=== PATIENT | female | born 1960 | race Caucasian/White ===

== ENCOUNTER 2021-04-14 06:25 | Observation (INO) ==
--- NOTE | 2021-03-10 09:18 | PAT Medication Instructions ---
Medication Instructions Date of Service March 10, 2021 Home Medications hydrocodone 5 mg-acetaminophen 325 mg tablet 1 tab PO TID PRN lisinopril 5 mg tablet 5 mg PO QAM naproxen sodium 220 mg capsule (Aleve) 220 mg PO BID PRN fluticasone propionate 50 mcg/actuation nasal spray,suspension 2 spray INTRANASAL DAILY ASK your surgeon for instructions naproxen sodium 220 mg capsule (Aleve) 220 mg PO BID PRN DO NOT take the morning of surgery lisinopril 5 mg tablet 5 mg PO QAM Take morning of surgery With a small sip of water, OTHERWISE NOTHING TO EAT OR DRINK AFTER MIDNIGHT: hydrocodone 5 mg-acetaminophen 325 mg tablet 1 tab PO TID PRN (okay to take up to 4 hours prior to surgery if needed) fluticasone propionate 50 mcg/actuation nasal spray,suspension 2 spray INTRANASAL DAILY Take evening before surgery hydrocodone 5 mg-acetaminophen 325 mg tablet 1 tab PO TID PRN (if needed) Other Notes If you have any questions please call us at [phone] or [phone] or [phone] or [phone]
--- NOTE | 2021-03-13 09:52 | Anesthesiology Consultation ---
Date of Service March 13, 2021 Assessment & Plan (1) Encounter for pre-operative examination: - COVID screening: Per assessment on 03/13: Travel screen negative, no known COVID-19 positive contacts or current COVID-19 related symptoms. Patient had initial COVID vaccine 02/09 (pt scheduled for second vaccinate 03/21). Surgeon arranging preop COVID testing. Awaiting results. - Difficult intubation: Per pt, told difficult intubation with remote EDGERMAN procedure at [facility] in (records not available)- told "small airway" which took several intubation attempts resulting in chipped upper front teeth and almost requiring need for trach. But per patient, they were able to intubate without needing trach. Subsequent ex-lap done at [facility] 2000 (records also not available) in which patient states they did not mention issue with intubation this time but they did have to do a breathing pretreatment. She reports that she has not had more recent surgeries requiring intubation in the subsequent 20 years following those procedures. On exam, patient has small oral opening, Mallampati 4, 1.5 finger breaths (small chin), thick neck with significantly decreased cervical extension consistent with likely difficult intubation* Chart Review Chart Review: Acceptable Risk for Surgery and Patient seen in Pre Admission Testing Teaching & Discussion Pre-Anesthesia Teaching/Discussion Notes: Instructed NPO after midnight before surgery,except medications with 15 cc of water. Medication instructions provided according to the PAT guidelines. History Surgery Operation Date: 04/14/21 07:00 Proposed Procedures p Left Total Knee Arthroplasty - Jono Murdock MD Height/Weight Height: 5 ft 7.5 in Weight: 91.3 kg Allergies Allergy/AdvReac Type Severity Reaction Status Date / Time amoxicillin AdvReac Mild "Ill" Verified 03/13/21 09:52 feeling Medications Home Medications Medication Instructions Recorded Confirmed Last Taken hydrocodone 5 mg-acetaminophen 325 1 tab PO TID PRN 06/08/20 03/09/21 Unknown mg tablet lisinopril 5 mg tablet 5 mg PO QAM 06/08/20 03/09/21 Unknown naproxen sodium 220 mg capsule 220 mg PO BID PRN 06/08/20 03/09/21 Unknown (Aleve) fluticasone propionate 50 2 spray INTRANASAL DAILY 03/09/21 03/09/21 Unknown mcg/actuation nasal spray,suspension Past Medical History Medical History Hyperlipidemia Hypertension Left knee DJD Osteoarthritis Sleep apnea CPAP Exercise / Class Metabolic Activity II 4-5 Yardwork/Stairs/Walk up hill (one FS (no CP, no SOB)) Past Surgical History Surgical History Difficult intubation Per pt, told difficult intubation with remote EDGERMAN procedure at [facility] in (records not available)- told "small airway" which took several intubation attempts resulting in chipped upper front teeth and almost requiring need for trach. But per patient, they were able to intubate without needing trach. Subsequent ex-lap done at [facility] 2000 (records also not available) in which patient states they did not mention issue with intubation this time but they did have to do a breathing pretreatment. She reports that she has not had more recent surgeries requiring intubation in the subsequent 20 years following those procedures. History of colon resection R/t endometriosis Hx of colonoscopy Hx of exploratory laparotomy + USO Hx of hysterectomy Hx of tonsillectomy Hx of tubal ligation S/P epidural steroid injection Past Anesthesia History Difficult Airway and No Family Hx of Anesthesia Complications Difficult intubation: Per pt, told difficult intubation with remote EDGERMAN procedure at [facility] in (records not available)- told "small airway" which took several intubation attempts resulting in chipped upper front teeth and almost requiring need for trach. But per patient, they were able to intubate without needing trach. Subsequent ex-lap done at [facility] 2000 (records also not available) in which patient states they did not mention issue with intubation this time but they did have to do a breathing pretreatment. She reports that she has not had more recent surgeries requiring intubation in the subsequent 20 years following those procedures. History of PONV No Hx of PONV and No Hx of Motion Sickness Social History Smoking Status: Never smoker Do You Dip or Chew Tobacco: No Hx Alcohol Use: Yes Alcohol type: wine alcohol intake frequency: holidays/special occasions only Hx Substance Use: No substance use type: does not use Review of Systems Patient denies chest pain, shortness of breath, dyspnea on exertion, fever, chills, cough, wheezing, palpitations. Physical Exam Vital Signs VITALS BP 153/80 P 65 TEMP 98.4 SP02 97%RA RESP 18 PHYSICAL Significantly decreased cervical extension range of motion. Full TMJ range of motion. TMD 1.5 finger breaths (small chin) Mallampati Score 4 (small oral opening) Dentition: upper front chipped "repaired" Lungs: clear throughout to auscultation Cardiac: regular rate and rhythm, no murmurs noted Spine: normal Carotid arteries: negative bruit Extremities: no edema Thick neck Lab Results Anesthesia Preop Results Results Anesthesia Widget: WBC 5.20 K/uL (4.8-10.8) 03/13/21 Hgb 12.3 g/dL (12.0-16.0) 03/13/21 Hct 36.9 % (37-47) L 03/13/21 Plt 301 K/uL (130-400) 03/13/21 Na 139 mmol/L (136-145) 03/13/21 K 3.9 mmol/L (3.5-5.1) 03/13/21 Cl 107 mmol/L (98-107) 03/13/21 CO2 26 mmol/L (21-32) 03/13/21 BUN 15 mg/dl (7-18) 03/13/21 Creat 0.64 mg/dl (0.6-1.2) 03/13/21 Glucose Level 96 mg/dl (70-99) 03/13/21 PT 10.1 Seconds (9.0-12.0) 03/13/21 PTT 23.3 Seconds (21.0-31.0) 03/13/21 INR 1.0 (0.9-1.1) 03/13/21 Blood Type A Positive 03/13/21 Antibody Screen NEGATIVE 03/13/21 Testing Electrocardiogram Date: 03/13/21 NSR at 66bpm. Moderate voltage criteria for LVH, may be normal variant. unconfirmed report. Chest X-Ray Date: 03/13/21 FINDINGS: Lung volumes are normal. Lungs are clear. There is no pneumothorax or pleural effusion. Cardiac size is normal. Mediastinal contours are normal. There is no evidence for pulmonary edema. Incidental note is made of an azygos fissure. IMPRESSION: No acute cardiopulmonary findings.
--- NOTE | 2021-04-08 10:44 | History and Physical Report ---
CHIEF COMPLAINT: Bilateral knee pain and discomfort, left side greater than right. HISTORY OF PRESENT ILLNESS: The patient is a 60-year-old female whom I have been following for knee arthritis for quite some time. She has been through extensive conservative treatment over the years, most specifically medicines as well as injections. She had multiple aspirations and injections, whi ch have become less successful over time. The left knee bothers her more than right. Fairly global pain. The more she is up and on, the more it hurts and more it swells. The knee has become very sti ff and she would like to have this fixed. PAST MEDICAL HISTORY: 1. Hypertension. 2. Elevated cholesterol. 3. Sleep apnea with CPAP machine. 4. Obesity with BMI of 31.2. PAST SURGICAL HISTORY: Includes: 1. Tonsillectomy. 2. Tubal ligation. 3. Colon removal/uterus removal for endometriosis. ALLERGIES: AMOXICILLIN. REACTIONS UNKNOWN. CURRENT MEDICATIONS: Includes: 1. Lisinopril. 2. Naproxen. 3. Fluticasone nasal spray. 4. Hydrocodone/Tylenol. SOCIAL HISTORY: This is a 60-year-old female. She is . Occasional alcohol intake. FAMILY HISTORY: Noncontributory. REVIEW OF SYSTEMS: Negative for diabetes, neurologic problem, vascular problems or bleeding disorder s. No chest pain or shortness of breath. No history of DVT or PE. No known bleeding problems. PHYSICAL EXAMINATION: GENERAL: Shows a pleasant middle-aged female, who looks to be in pretty good health. HEENT: Benign. NECK: Supple. No lymphadenopathy. LUNGS: Clear to auscultation. HEART: Has regular rate and rhythm. ABDOMEN: Soft, nontender, nondistended. EXTREMITIES: Grossly neurovascularly intact except as follows. Examination of the left knee reveals the patient ambulates independently. She has got valgus alignme nt to her knee. She has got a moderate-sized knee effusion. Range of motion about 10 degrees short of full extension to 90 degrees of flexion and very stiff. No pain with hip motion. X-RAYS: X-rays of the left knee reviewed. It shows advanced left knee lateral compartment DJD and a dvanced patellofemoral disease. She has got complete loss of her lateral joint space. She has simil ar findings in the right knee. ASSESSMENT: A 60-year-old female with advanced bilateral knee degenerative joint disease, left side more symptomatic than right. She has failed conservative treatment, elected to proceed with left kne e replacement. PLAN: We will take her to the operating room and do a left total knee replacement. Risks and benefi ts of this procedure were explained to the patient include but not limited to DVT, PE, , infecti on, neurological injury, vascular injury, bleeding problem, pain, limited range of motion, stiffness, failure to relieve her symptoms, incomplete relief of symptoms, need for further surgery in the futu re, fracture, leg length inequality, nerve palsy, etc. The patient understands and desires to procee d. Informed consent was obtained. We did talk about holding her lisinopril the morning of surgery. She will bring her CPAP machine to the hospital. She is planning to be discharged to home using [facility]. I will see her back 2 weeks postop. Job ID: [id number]
[~2021-04-14 06:25] MED LIST: ACETAMINOPHEN 500 MG TAB PO SCH; BUPIVACAINE LIPOSOME/PF 266 MG, BUPIVACAINE/EPINEPHRINE 50 ML, SODIUM CHLORIDE 0.9% 30 ... INFIL SCH; FAMOTIDINE 20 MG TAB PO SCH; GABAPENTIN 600 MG DOSE PO SCH; LR 500ML BOLUS, THEN 15ML/HR IV SCH; LR 60ML/HR IV SCH; METOCLOPRAMIDE HCL 10 MG TABLET PO SCH; Scopolamine 1 MG TDSY TD SCH; TRANEXAMIC ACID 1,000 MG **IV Intra-op IV SCH; ceFAZolin 2000MG 2,000 MG/15 ML SYR IV SCH
--- NOTE | 2021-04-14 06:56 | History & Physical Bridge Note ---
Date of Service April 14, 2021 History & Physical Bridge Note I have examined the patient, reviewed the History & Physical and in the interval since the performance of the History & Physical I have noted the following changes of clinical significance: no changes noted
[2021-04-14] MEDS ORDERED: ROPIVACAINE 0.5% 5 MG/ML 30 ML VIAL ONE (07:17)
[2021-04-14] MEDS ORDERED: BUPIVACAINE 0.5 % 5 MG/1 ML PF 10ML VIAL ONE (07:18)
[2021-04-14] MEDS ORDERED: MIDAZOLAM HCL 1 MG/ML 2ML VIAL ONE ×2 (08:35→09:42)
[2021-04-14] MEDS ORDERED: fentaNYL citrate 100 MCG/2 ML VIAL ONE (08:35)
[2021-04-14] MEDS ORDERED: SODIUM CHLORIDE 0.9% PF 50 ML VIAL ONE (09:10)
[2021-04-14] MEDS ORDERED: BUPIVACAINE LIPOSOME 1.3% 266 MG/20 ML VIAL ONE (09:11)
[2021-04-14] MEDS ORDERED: EPINEPHrine INJ 1 MG/ML AMP ONE (09:11)
[2021-04-14] MEDS ORDERED: BUPIVACAINE 0.25% 30 ML VIAL ONE (09:12)
[2021-04-14] MEDS ORDERED: KETAMINE 50 MG/5 ML SYRINGE ONE (09:43)
[2021-04-14] MEDS ORDERED: ATROPINE SULFATE 0.1 MG/ML 10ML SYR IV PRN (10:06)
[2021-04-14] MEDS ORDERED: KETOROLAC 30 MG/ML VIAL IV PRN (10:06)
[2021-04-14] MEDS ORDERED: ONDANSETRON INJ 2 MG/ML 2 ML VIAL IV PRN ×2 (10:06→13:01)
[2021-04-14] MEDS ORDERED: HYDROmorphone INJ 1 MG/ML SYRINGE IV PRN (10:06)
[2021-04-14] MEDS ORDERED: ePHEDrine sulfate 50 MG/ML AMP IV PRN (10:06)
[2021-04-14] MEDS ORDERED: PROPOFOL IV EMULSION 10 MG/ML 20 ML VIAL IV ONE (11:15)
--- NOTE | 2021-04-14 11:36 | Operative Report ---
Post Operative Report Pre & Post Diagnosis Operation Date: 04/14/21 08:50 Pre-Op Diagnosis: Left Knee Osteoarthritis Post-Op Diagnosis: Left Knee Osteoarthritis I identified the patient and participated in the time-out.: Yes Procedure Operation Date: 04/14/21 08:50 Actual Procedures p Left Total Knee Replacement(Left) - Jono Murdock MD Surgeon Jono Murdock MD Caustic Preparer Geovanny Wright PA-C Estimated Blood Loss 50 Findings Consistent with Post-Op Diagnosis Operative findings were advanced left knee tricompartment DJD with grade 4 change changes in all 3 compartments of the knee with erosions and osteophytes and some diffuse osteopenia. Moderate-sized joint effusion. She had a very stiff knee preoperatively with about a 10 degree flexion contracture and about 95 degrees of flexion. Fluids 1800 cc Specimens Left knee sent for pathology. Anesthesia Type Spinal MAC Complications none Disposition Accompanied Patient To Recovery: No Indications Patient is a 60-year-old female has had a long history of left knee pain discomfort describes gotten worse over time. She developed recurrent effusions as well as what looked quite a bit of stiffness in her knee. X-rays show advanced lateral and patellofemoral compartment arthritis. She elected proceed with surgical treatment. She had a very stiff and inflamed knee. Description of Procedure Operative implants consist of: 1. Biomet Vanguard size 67.5 left posterior stabilized femoral component. 2. Biomet size 67 tibial tray. 3. 10 mm posterior stabilized polyethylene insert. 4. 31 x 8 all polypatella. The patient was taken to the operating room, identified, and placed on the operating table supine position but all contractors were properly padded. IV antibiotics were provided by anesthesia team. A spinal anesthetic and been implemented holding area along with an abductor canal block. Pereira catheter was placed in sterile fashion. A left thigh turn was then placed in the left lower extremities and prepped and draped in usual sterile fashion. The left leg was elevated exsanguinated with use of an Esmarch and turns placed at 300 mmHg. An anterior approach left knee was then performed through longitudinal incision centered over the patella. Sharp dissection carried through subcutaneous this down the extensor mechanism. A medial parapatellar arthrotomy was then performed. Subperiosteal dissection was carried out medially. The fat pad was resected from the patella tendon. Lateral patellofemoral ligament was released. Patella subluxated laterally and the knee was flexed. The osteophytes taken off distal femur. The ACL and PCL were then released and distal femur the tibia subluxated anteriorly. External tibial alignment jig was then placed in the interface the tibia and adjusted 12 mm medially. Proximal tibial cut was made remove about 3 to 4 mm of bone from the medial side. Tibia was sized to a size 67. We did downsize this in order to get appropriate rotation as she has had patellofemoral maltracking preoperatively. Attention drawn the femur. The distal femur during the sharp drill. The intramedullary canal was suction. A left 5 degree valgus cutting guide was placed. The distal femoral cutting block was pinned in place. Distal femoral cut was made to take an additional 3 mm of bone off distal femur. The knee was brought out into full extension. I did do a pie crusting of the IT band in order to equalize extension gap. The knee was flexed. The femur was then sized to a size 67.5. The AP cutting block was pinned parallel to the epicondylar axis which was 6 degrees of external rotation. The anterior cut, anterior chamfer, posterior cut, posterior chamfer cuts were made. The box cutting guide was placed in the just slight lateral and the box cut was made. The knee was flexed. The remnants of the medial and lateral menisci were excised. The osteophytes taken off the posterior aspect of femur. A trial femoral component was placed. Tibial tray was pinned in maximum external rotation and the drill and stem punch were used to create defect in proximal tibia for the tibial tray. Knee was then trialed the 10 mm insert fit most appropriately. I did leave this a little bit loose as her knee was very stiff preoperatively. Attention was then drawn to the patella. Patella was cleaned of all soft tissue. Patella thickness measured about 22 mm in thickness cut down to 14. Was sized to a size 31 patella. The lug holes were drilled for the 31 patella. The lateral osteophyte is moved. Patella button was placed. Knee was taken through range of motion patella tracked nicely with no thumbs test. Attention drawn to placing permanent components. Nupathe all trial components were removed. Bone plug was placed in the distal femur limit blood loss. Double batch Palacos G cement was mixed. BiomYappnguard size 67.5 left posterior stabilized femoral component, size 67 tibial tray, a 10 mm posterior stabilized polyethylene insert, and a 31 x 8 all polypatella were then cemented in place. Knee was brought out in full extension total cement hardened. Final cement checkup then performed. Pericapsular tissues were injected with total 100 cc of combination of 20 cc of Exparel, 30 cc normal saline, 50 cc of quarter percent Marcaine with epinephrine. Patient did receive 1 g tranexamic acid per the tourniquet was let down for turn time 63 minutes. Hemostasis assured use electrocautery. The wound was once again irrigated. The extensor mechanism closed with combination 1 PDS suture #1 Vicryl suture in [id number] fashion for the extensor mechanism checked found to be intact with a subcutaneous tissue then closed with 2 Dexon suture in a buried interrupted fashion skin was closed skin mitch. Leg was then cleaned dried a sterile dressing with Xeroform, 4 x 4's, sterile cast padding, Anson bandage were applied. Patient then transferred to the recovery room in stable condition. Patient tolerated procedure well and there were no complications. Geovanny Wright, my physician imaging assistant, was present for the entire procedure. His assistance was essential and required for appropriate patient positioning, prepping and draping, surgical exposure, performing the technical details of the operation, placement the implants, closure of the wound, and placement of the sterile bandage. I attest to the content of the Intraoperative Record and any orders documented therein. Any exceptions are noted below.
--- NOTE | 2021-04-14 11:47 | XRay Report ---
LEFT KNEE 2 VIEWS History: Left total knee arthroplasty. Degenerative arthritis. Postop. FINDINGS: The patient is status post a left total knee arthroplasty. The hardware is intact. No fract ure or dislocation. Skin mitch are in place. IMPRESSION: Left total knee arthroplasty. No evidence for hardware complication. ACT 112: Negative or not required by law. Electronically signed by: Hoang Payne M.D. 04/14/2021 11:46 AM
[2021-04-14] MEDS ORDERED: NALOXONE HCL 0.4 MG/1 ML VIAL/CARP IV PRN (13:01)
[2021-04-14] MEDS ORDERED: bisacodyL 10 MG SUPP PR PRN (13:01)
[2021-04-14] MEDS ORDERED: diphenhydrAMINE Capsule 25 MG CAP PO PRN (13:01)
[2021-04-14] MEDS ORDERED: MAGNESIUM HYDROXIDE SUSP 30 ML UDC PO PRN (13:01)
[2021-04-14] MEDS ORDERED: ALUMINUM/MAGNESIUM SUSP 30 ML UDC PO PRN (13:01)
[2021-04-14] MEDS ORDERED: METOCLOPRAMIDE HCL INJ 5 MG/ML 2 ML VIAL IV PRN (13:01)
--- NOTE | 2021-04-14 13:03 | Anesthesiology Progress Note ---
Date of Service April 14, 2021 Anesthesia Post Procedure Vital Signs Vital Signs: Temp Pulse Pulse Resp BP Pulse Ox 04/14/21 12:56 36.5 C 60 16 167/82 H 100 04/14/21 12:05 66 16 159/80 H 100 04/14/21 11:55 37 C 59 L 15 133/78 100 04/14/21 11:45 77 16 156/75 H 99 04/14/21 11:35 66 16 138/75 100 04/14/21 11:28 36.5 C 80 22 149/68 H 99 04/14/21 07:21 37.3 C 74 20 178/91 H 99 Transfer of Care Handoff Completed per policy Notes Mental Status: alert / awake / arousable Patient Amnestic to Procedure: Yes Nausea / Vomiting: adequately controlled Pain: adequately controlled Airway Patency, RR, SpO2: stable & adequate BP & HR: stable & adequate Hydration State: stable & adequate Anesthetic Complications: no major complications apparent
[2021-04-14] MEDS: SODIUM CHLORIDE 0.9% 1000ML 1,000 ML IV SCH ×2 (13:43→23:28)
[2021-04-14] MEDS: ACETAMINOPHEN 500 MG TAB PO SCH ×2 (13:45→21:03)
[2021-04-14] MEDS: KETOROLAC 30 MG/ML VIAL IV SCH ×2 (13:45→19:52)
[2021-04-14] MEDS: oxyCODONE HCL IR 5 MG TAB (IMMEDIATE RELEASE) PO PRN ×2 (14:38→20:00)
[2021-04-14] MEDS: Scopolamine CHECK PATCH PLACEMENT SCH ×2 (15:13→23:29)
[2021-04-14] MEDS: ASCORBIC ACID 500 MG TAB PO SCH (16:39)
[2021-04-14] MEDS: ceFAZolin 2000MG 2,000 MG/15 ML SYR IV SCH (16:40)
[2021-04-14] MEDS ORDERED: TRANEXAMIC ACID / 0.7% NACL 1,000 MG/100 ML BAG IV SCH (17:30)
[2021-04-14] MEDS: DOCUSATE SODIUM 100 MG CAP PO SCH (19:58)
[2021-04-14] MEDS: ASPIRIN 81 MG ECTAB PO SCH (20:00)
[2021-04-14] MEDS ORDERED: SENNA 8.6 MG TAB PO SCH (21:00)
[2021-04-14] MEDS: TAPENTADOL HCL ER 50 MG TABCR PO SCH (21:03)
[2021-04-15] MEDS: KETOROLAC 30 MG/ML VIAL IV SCH ×2 (01:19→08:14)
[2021-04-15] MEDS: ceFAZolin 2000MG 2,000 MG/15 ML SYR IV SCH (01:20)
[2021-04-15] MEDS: oxyCODONE HCL IR 5 MG TAB (IMMEDIATE RELEASE) PO PRN (05:24)
[2021-04-15] MEDS: ACETAMINOPHEN 500 MG TAB PO SCH (05:24)
[2021-04-15 07:14] LABS: Hematocrit (blood only) 29.3 % (37-47); Hemoglobin 9.6 g/dL (12.0-16.0); Mean Corpuscular Hemoglobin 29.4 pg (25-34); Mean Corpuscular Hgb Conc 32.8 g/dL (32-36); Mean Corpuscular Volume 89.6 fL (80-100); Mean Platelet Volume 9.8 fL (7.4-10.4); Platelet Count 237 K/uL (130-400); RDW Coefficient of Variation 13.1 % (11.5-14.5); RDW Standard Deviation 43.2 fL (36.4-46.3); Red Blood Count 3.27 M/uL (4.2-5.4)
[2021-04-15 07:34] LABS: BUN Creatinine Ratio 21.7 (10-20); Calcium 7.9 mg/dl (8.5-10.1); Creatinine Clr Calc Pharmacy 40.8 ml/min; Est GFR (African American) 105.5 ml/min; Potassium 3.7 mmol/L (3.5-5.1)
[2021-04-15] MEDS ORDERED: dexAMETHasone 10 MG in SYRINGE 0 ML IV SCH (08:00)
[2021-04-15] MEDS: DOCUSATE SODIUM 100 MG CAP PO SCH (08:14)
[2021-04-15] MEDS: ASPIRIN 81 MG ECTAB PO SCH (08:14)
[2021-04-15] MEDS: ASCORBIC ACID 500 MG TAB PO SCH (08:15)
[2021-04-15] MEDS: Scopolamine CHECK PATCH PLACEMENT SCH (08:15)
[2021-04-15] MEDS: TAPENTADOL HCL ER 50 MG TABCR PO SCH (08:16)
--- NOTE | 2021-04-15 08:45 | Progress Notes ---
DATE OF NOTE: 04/15/2021. SUBJECTIVE: A 60-year-old female postoperative day 1 from left knee replacement. She is doing prett y well. Having some pain, but responds well to pain medicine. No chest pain or shortness of breath. Not feeling dizzy or lightheaded. OBJECTIVE: VITAL SIGNS: Temperature 36.7. Vital signs are stable. GENERAL: Physical examination shows a pleasant middle-aged female. She is sitting up in bed [place] television, looks comfortable. LUNGS: Clear to auscultation. HEART: Has regular rate and rhythm. ABDOMEN: Soft, nontender, nondistended. EXTREMITIES: Grossly neurovascularly intact except as follows. Examination of left lower extremity reveals the dressing to be clean, dry and intact. She can dorsif ifrah and plantarflex her foot appropriately. She has got brisk refill. Good distal pulse. LABORATORY DATA: Hemoglobin 9.6. Hematocrit 29.3. Electrolytes are stable. ASSESSMENT: A 60-year-old female postoperative day 1 from a left knee replacement, doing pretty well . Pain is controlled. She is neurologically intact. PLAN: 1. DVT prophylaxis include thigh-high TEDs, SCDs, and aspirin twice. 2. PT, OT, weightbear as tolerated. Left total knee protocol. 3. Pain control, doing well with current pain regimen. 4. Disposition: Plan to discharge to home with some home health once adequately recovered. I will see how she does in therapy today. Job ID: [id number]
[2021-04-15] MEDS ORDERED: NON-FORMULARY MEDICATION (Amino Acids [Amino Acid] Capsule) PO SCH (09:00)
[2021-04-15] MEDS ORDERED: lisinopril 5 MG TAB PO SCH (09:00)
[2021-04-15] MEDS ORDERED: FLUTICASONE PROPIONATE NA SPR 16 GM BTL NAE SCH (09:00)
[2021-04-15] MEDS ORDERED: MULTIVITAMIN TAB PO SCH (09:00)
--- NOTE | 2021-04-19 14:02 | Discharge Summary ---
Date of Service April 19, 2021 Discharge Data Procedures Performed Operation Date: 04/14/21 08:50 Actual Procedures p Left Total Knee Replacement(Left) - Jono Murdock MD Hospital Course (1) Status post total left knee replacement: This is a 60 year old patient admitted on 04/14/21 and underwent total knee arthroplasty. She tolerated the procedure well and there were no complications. Transferred to the PACU post op and later to the orthopedic floor for further care. She was given ancef for antibiotic prophylaxis. She was also given CESAR stockings, SCDs, and aspirin for DVT prophylaxis. Hemoglobin, hematocrit, and vital signs were monitored during her hospital stay and remained stable. Did not require any blood transfusions. There were no complications during her hospital stay. By post op day #1 the patient was tolerating a regular diet, pain was reasonably controlled with oral pain medicine, and she was participating in physical therapy. On post op day #1 the patient was discharged home and set up with home health care. She was given printed discharge instructions including prescriptions for extra strength tylenol, aspirin, and oxycodone. Continue physi reba therapy, weight bearing as tolerated. Continue CESAR stockings. Follow up approximately 2 weeks post op or sooner if there are problems or concerns. Coding Level of Care Code None Diagnoses Status post total left knee replacement Z96.652
== END 2021-04-15 13:29 | disposition home health service (06) ==
LOC: ASU 06:25 → 3E 06:25

== ENCOUNTER 2023-05-17 09:00 | Observation (INO) ==
--- NOTE | 2023-04-17 10:06 | PAT Medication Instructions ---
Medication Instructions Date of Service April 17, 2023 Home Medications cholecalciferol (vitamin D3) 1,250 mcg (50,000 unit) capsule 1,250 mcg PO WK citalopram 20 mg tablet 20 mg PO BID diclofenac sodium 75 mg tablet,delayed release 75 mg PO BID fluticasone propionate 50 mcg/actuation nasal spray,suspension 2 spray intranasal QAM gabapentin 400 mg capsule 400 mg PO TID lisinopril 5 mg tablet 5 mg PO HS omeprazole 40 mg capsule,delayed release 40 mg PO QAM Continue as directed cholecalciferol (vitamin D3) 1,250 mcg (50,000 unit) capsule 1,250 mcg PO WK (just do not take morning of surgery) ASK your surgeon for instructions diclofenac sodium 75 mg tablet,delayed release 75 mg PO BID Take morning of surgery With a small sip of water, OTHERWISE NOTHING TO EAT OR DRINK AFTER MIDNIGHT: citalopram 20 mg tablet 20 mg PO BID fluticasone propionate 50 mcg/actuation nasal spray,suspension 2 spray intranasal QAM gabapentin 400 mg capsule 400 mg PO TID omeprazole 40 mg capsule,delayed release 40 mg PO QAM Take evening before surgery citalopram 20 mg tablet 20 mg PO BID gabapentin 400 mg capsule 400 mg PO TID lisinopril 5 mg tablet 5 mg PO HS Other Notes If you have any questions please call us at [phone] or [phone] or [phone] or [phone]
--- NOTE | 2023-04-22 08:51 | Anesthesiology Consultation ---
Date of Service April 22, 2023 Assessment & Plan (1) Encounter for pre-operative examination: Chart Review Chart Review: Acceptable Risk for Surgery and Patient seen in Pre Admission Testing Hx of difficult intubation= - Per pt, told difficult intubation with remote MASTIC MAN procedure at [facility] in (records not available)- told "small airway" which took several intubation attempts resulting in chipped upper front teeth and almost requiring need for trach. But per patient, they were able to intubate without needing trach. - Subsequent ex-lap done at [facility] 2000 (records also not available) in which patient states they did not mention issue with intubation this time but they did have to do a breathing pretreatment. - She reports that she has not had more recent surgeries requiring intubation in the subsequent 20 years following those procedures. - On exam, patient has small oral opening, Mallampati 4, 2.5 finger breaths (small chin), thick neck with significantly decreased cervical extension consistent with likely difficult intubation* Pt currently scheduled as 23 hours observation. If surgeon decides to change patient to [facility], patient would be acceptable risk for TKA, pending patient is motivated, has good support and surgeon's office completes [facility] preop requirements. Per PAT appt on 04/22/23, no recent Covid exposures, Covid related symptoms, or recent Covid positive tests. Will leave to surgeon's discretion if preop Covid testing needed Left TKA 04/14/21= Done under [facility] at L3-4. No anesthesia issues noted Teaching & Discussion Pre-Anesthesia Teaching/Discussion Notes: Instructed NPO after midnight before surgery,except medications with 15 cc of water. Medication instructions provided according to the PAT guidelines. History Surgery Operation Date: 05/17/23 07:00 Proposed Procedures p Right Total Knee Arthroplasty - Jono Murdock MD Height/Weight Height: 5 ft 7 in Weight: 93.4 kg Allergies Allergy/AdvReac Type Severity Reaction Status Date / Time amoxicillin AdvReac Intermediate sick to Verified 04/16/23 13:51 stomach "didn't feel right" [id number]-[id number] Reductase AdvReac Mild Muscle Pain Verified 04/16/23 13:55 Inhibitor Medications Home Medications Medication Instructions Recorded Confirmed Last Taken cholecalciferol (vitamin D3) 1,250 1,250 mcg PO WK 02/18/23 04/16/23 Unknown mcg (50,000 unit) capsule citalopram 20 mg tablet 20 mg PO BID 02/18/23 04/16/23 Unknown diclofenac sodium 75 mg 75 mg PO BID 02/18/23 04/16/23 Unknown tablet,delayed release fluticasone propionate 50 2 spray intranasal QAM 02/18/23 04/16/23 Unknown mcg/actuation nasal spray,suspension gabapentin 400 mg capsule 400 mg PO TID 02/18/23 04/16/23 Unknown lisinopril 5 mg tablet 5 mg PO HS 02/18/23 04/16/23 Unknown omeprazole 40 mg capsule,delayed 40 mg PO QAM 02/18/23 04/16/23 Unknown release Past Medical History Medical History Anxiety GERD (gastroesophageal reflux disease) well controlled and stable Hx of cardiac murmur as a child Hyperlipidemia Hypertension Lumbar herniated disc Chronic issue x years - before 2020- stable Sleep apnea CPAP Exercise / Class Metabolic Activity II 4-5 Yardwork/Stairs/Walk up hill (one flight of stairs - no chest pain or SOB ) Past Family History Family History Other No family history of adverse response to anesthesia Past Surgical History Surgical History (Updated 04/22/23 @ 09:02 by Jennie Garcia PA-C) Difficult intubation Per pt, told difficult intubation with remote MASTIC MAN procedure at [facility] in (records not available)- told "small airway" which took several intubation attempts resulting in chipped upper front teeth and almost requiring need for trach. But per patient, they were able to intubate without needing trach. Subsequent ex-lap done at [facility] 2000 (records also not available) in which patient states they did not mention issue with intubation this time but they did have to do a breathing pretreatment. She reports that she has not had more recent surgeries requiring intubation in the subsequent 20 years following those procedures. H/O unilateral oophorectomy x 2 History of colon resection R/t endometriosis 2000 History of myringotomy History of total knee replacement Left TKA 04/14/21= Done under [facility] at L3-4. No anesthesia issues noted Hx of colonoscopy Hx of hysterectomy Hx of tonsillectomy Hx of tubal ligation S/P epidural steroid injection Past Anesthesia History No Hx of Anesthesia Complications (with exception to history of difficult intubation ), Difficult Airway and No Family Hx of Anesthesia Complications History of PONV No Hx of PONV and No Hx of Motion Sickness Social History Smoking Status: Never smoker Do You Dip or Chew Tobacco: No Hx Alcohol Use: Yes Alcohol type: wine alcohol intake frequency: holidays/special occasions only substance use type: does not use Review of Systems Patient denies chest pain, shortness of breath, dyspnea on exertion, cough, wheezing, palpitations. No hx of seizures, stroke, IA. No hx of blood clots or blood transfusions Physical Exam Vital Signs VITALS BP 156/91 P 53 TEMP 97.9 SP02 97% RESP 16 Constitutional no acute distress ENMT Mouth: + small oral opening; no TMJ clicking Thyromental Distance: < 3.5 Finger Breadths (2.5) Mallampati Class: IV Missing molars Possible cap to front upper tooth Neck + thick neck and + limited neck extension (significant ) Respiratory normal respiratory effort; no respiratory distress Auscultation: lungs clear to auscultation bilaterally; no wheezes Cardiovascular Rate/Rhythm: regular rate and regular rhythm Heart Sounds: no murmur Vessels: no carotid bruit Musculoskeletal Spine: + pain with cervical ROM Extremities: extremities normal to inspection Psychiatric Orientation: alert Lab Results Anesthesia Preop Results Results Anesthesia Widget: WBC 5.99 K/ul (4.8-10.8) 04/22/23 Hgb 11.7 g/dl (12.0-16.0) L 04/22/23 Hct 35.5 % (37.0-47.0) L 04/22/23 Plt 279 K/uL (130-400) 04/22/23 Na 138 mmol/L (136-145) 04/22/23 K 4.2 mmol/L (3.5-5.1) 04/22/23 Cl 104 mmol/L (98-107) 04/22/23 CO2 28 mmol/L (21-32) 04/22/23 BUN 20 mg/dl (6-23) 04/22/23 Creat 0.98 mg/dl (0.6-1.2) 04/22/23 Glucose Level 92 mg/dl (70-99(Fasting)) 04/22/23 PT 10.9 Seconds (9.0-12.0) 04/22/23 PTT 24.2 Seconds (21.0-31.0) 04/22/23 INR 1.0 (0.9-1.1) 04/22/23 Blood Type A Positive 04/22/23 Antibody Screen NEGATIVE 04/22/23 Testing Electrocardiogram Date: 04/22/23 Findings: + SB @ (54bpm) Otherwise normal EKG per cardio Chest X-Ray Date: 04/22/23 FINDINGS: The cardiac silhouette is borderline enlarged. Hazy appearance to the right azygos lobe, unchanged. This is likely chronic. Otherwise, lungs are clear. No pleural effusions. No pneumothorax. No new focal lung consolidations to suggest pneumonia. IMPRESSION: No significant change compared to the prior study. No acute process.
--- NOTE | 2023-05-10 13:51 | History & Physical Report ---
Date of Service May 10, 2023 Assessment & Plan (1) Right knee DJD: 62-year-old female now little over 2 years out from a left knee replacement with right knee DJD. She has failed conservative measures. She like to have her right knee replaced. Plan taken the operating of a right total knee replacement but the risks Mente this procedure explained the patient clued but not limited to DVT PE infection neurological and vascular bleeding palm pain limb range of motion test is fairly her symptoms incomplete relief of symptoms etc. Patient understands and desires to proceed. Informed consent is obtained. We will plan on DVT prophylaxis including thigh-high teds, SCDs, aspirin twice a day. She is going to have energy physical therapy. Hold diclofenac at 10 days preop. She should bring her CPAP machine to the hospital. She will follow-up in our clinic 2 weeks postop (2) Status post total left knee replacement: History of Present Illness Chief Complaint: . Persistent right knee pain discomfort and instability. Primary Care Provider: Alpesh Dexter DO . Patient is a 62-year-old female well-known to me from her previous a left knee replacement done a little over 2 years ago. She continues to be bothered by right knee pain discomfort and instability. She been through extensive conservative care. Her knee gives out intermittently. She has a sharp pain. She is limiting her walking ability. She is very happy with the left knee replacement would like to have her right knee doing better. Describes global pain in the knee. Increased with weightbearing. Some nighttime pain. Allergies Allergy/AdvReac Type Severity Reaction Status Date / Time amoxicillin AdvReac Intermediate sick to Verified 04/16/23 13:51 stomach "didn't feel right" Uqbinjp-NHA-XrB Reductase AdvReac Mild Muscle Pain Verified 04/16/23 13:55 Inhibitor Home Medications Medication Instructions Recorded Confirmed Type cholecalciferol (vitamin D3) 1,250 1,250 mcg PO WK 02/18/23 04/16/23 History mcg (50,000 unit) capsule citalopram 20 mg tablet 20 mg PO BID 02/18/23 04/16/23 History diclofenac sodium 75 mg 75 mg PO BID 02/18/23 04/16/23 History tablet,delayed release fluticasone propionate 50 2 spray intranasal QAM 02/18/23 04/16/23 History mcg/actuation nasal spray,suspension gabapentin 400 mg capsule 400 mg PO TID 02/18/23 04/16/23 History lisinopril 5 mg tablet 5 mg PO HS 02/18/23 04/16/23 History omeprazole 40 mg capsule,delayed 40 mg PO QAM 02/18/23 04/16/23 History release Past Med/Surg History Medical History Anxiety GERD (gastroesophageal reflux disease) well controlled and stable Hx of cardiac murmur as a child Hyperlipidemia Hypertension Lumbar herniated disc Chronic issue x years - before 2020- stable Sleep apnea CPAP Surgical History Difficult intubation Per pt, told difficult intubation with remote MANAGER PERSONNEL SELECTION procedure at [facility] in (records not available)- told "small airway" which took several intubation attempts resulting in chipped upper front teeth and almost requiring need for trach. But per patient, they were able to intubate without needing trach. Subsequent ex-lap done at [facility] 2000 (records also not available) in which patient states they did not mention issue with intubation this time but they did have to do a breathing pretreatment. She reports that she has not had more recent surgeries requiring intubation in the subsequent 20 years following those procedures. H/O unilateral oophorectomy x 2 History of colon resection R/t endometriosis 2000 History of myringotomy History of total knee replacement Left TKA 04/14/21= Done under [facility] at L3-4. No anesthesia issues noted Hx of colonoscopy Hx of hysterectomy Hx of tonsillectomy Hx of tubal ligation S/P epidural steroid injection Family History Other No family history of adverse response to anesthesia Social History Smoking Status: Never smoker Second Hand Exposure: No; Do You Dip or Chew Tobacco: No; Hx Alcohol Use: Yes Alcohol type: wine Preferred Language: Guamanian Communication Ability: Effective Truck Caterer Required: No Beliefs That Will Affect Care: None marital status: Current Living Situation: Spouse Feels Safe at Home: Yes Assistive Devices: CPAP and Glasses Review of Systems All systems reviewed & are unremarkable except as noted in HPI & below. Physical Exam . Physical examination reveals a pleasant middle-age female. Examination of both knees patient walks independently. Examination left knee reveals a well-healed incision. She got anatomic alignment to the knee. No swelling. Range of motion 0-1 20. Good straight leg raise. Examination the right knee reveals slight valgus alignment to her knee. This is increased with weightbearing. She is tender with medial joint line. Range of motion about 10 degrees short of full extension to 110 degrees of flexion. There is no instability. No pain with hip motion. Constitutional WD/WN, vitals as above Neck trachea midline, no thyromegaly Respiratory normal respiratory effort, lungs clear to auscultation Cardiovascular RRR, no murmur, no edema Gastrointestinal (Abdomen) normal bowel sounds, soft, nontender, no hepatosplenomegaly Results & Data Results & Data Laboratory Results . Diagnostic Findings . PG Care Time/CCT Total # of Minutes Spent Total Time Spent with Patient: Total time spent is greater than 50% in coordination of care (as documented) at patient's floor/unit and/or counseling patient: Coding Level of Care Code None Diagnoses Right knee DJD M17.11 Status post total left knee replacement Z96.652
[~2023-05-17 09:00] MED LIST changes: +BUPIVACAINE 0.5 % 5 MG/1 ML PF 10ML VIAL ONE; -BUPIVACAINE LIPOSOME/PF 266 MG, BUPIVACAINE/EPINEPHRINE 50 ML, SODIUM CHLORIDE 0.9% 30 ... INFIL SCH; +BUPIVACAINE LIPOSOME/PF 266 MG, BUPIVACAINE/EPINEPHRINE 50 ML, SODIUM CHLORIDE 0.9% PF ... INFIL SCH; +CeleBREX 200 MG CAP PO SCH; +EPINEPHrine INJ 1 MG/ML AMP ONE; -GABAPENTIN 600 MG DOSE PO SCH; +ROPIVACAINE 0.5% 5 MG/ML 30 ML VIAL ONE; +dexAMETHasone**PF** 10 MG/ML VIAL IV SCH
[2023-05-17] MEDS ORDERED: LIDOCAINE 2% 2 ML VIAL/AMP(20MG/ML) INFIL ONE (09:26)
[2023-05-17] MEDS ORDERED: PROPOFOL IV EMULSION 10 MG/ML 20 ML VIAL IV ONE (09:26)
[2023-05-17] MEDS ORDERED: MIDAZOLAM HCL 1 MG/ML 2ML VIAL ONE (09:26)
[2023-05-17] MEDS ORDERED: ONDANSETRON INJ 2 MG/ML 2 ML VIAL ONE (09:26)
--- NOTE | 2023-05-17 10:43 | History & Physical Bridge Note ---
Date of Service May 17, 2023 History & Physical Bridge Note I have examined the patient, reviewed the History & Physical and in the interval since the performance of the History & Physical I have noted the following changes of clinical significance: no changes noted
[2023-05-17] MEDS ORDERED: BUPIVACAINE LIPOSOME 1.3% 266 MG/20 ML VIAL ONE (10:51)
[2023-05-17] MEDS ORDERED: SODIUM CHLORIDE 0.9% PF 50 ML VIAL ONE (10:51)
[2023-05-17] MEDS ORDERED: BUPIVACAINE/EPINEPHRINE 0.25% 1:200,000 30 ML VIAL ONE (10:51)
[2023-05-17] MEDS ORDERED: ATROPINE SULFATE 0.1 MG/ML 10ML SYR IV PRN (12:39)
[2023-05-17] MEDS ORDERED: ePHEDrine sulfate 50 MG/ML AMP IV PRN (12:39)
--- NOTE | 2023-05-17 13:11 | Operative Report ---
PG Post Operative Report Pre & Post Diagnosis Operation Date: 05/17/23 10:40 Pre-Op Diagnosis: Right Knee Advanced Degenerative Joint Disease Post-Op Diagnosis: Right Knee Advanced Degenerative Joint Disease I identified the patient and participated in the time-out.: Yes Procedure Operation Date: 05/17/23 10:40 Actual Procedures p Right Total Knee Arthroplasty - Jono Murdock MD Surgeon Jono Murdock MD Associate Editor Geovanny Wright PA-C Estimated Blood Loss 50 Findings Consistent with Post-Op Diagnosis Operative findings were advanced right knee DJD. She had grade 3 [id number]-jn-[id number] disease in all 3 compartments most severe in the lateral and patellofemoral compartments. Moderate-sized joint effusion. Valgus deformity to her knee. Specimens Right knee sent for pathology Anesthesia Type Spinal MAC Complications none Disposition Accompanied Patient To Recovery: No Indications Patient 62-year-old female had a long history of bilateral knee pain discomfort describes gotten worse over time. She been to extensive conservative treatment. She had her left knee replaced 2 years ago was done well from this. She is bothered by right knee pain discomfort. X-rays show advanced knee arthritis. In the lateral compartment. She elected for surgical management. Description of Procedure Operative implants consist of: 1 Biomet Vanguard size 70 right posterior stabilized femoral component. 2. Biomet size 71 tibial tray. 3. 10 mm post stabilized polyethylene insert. 4. 31 x 8 all poly patella. The patient was taken the operating, identified, and placed on the operating table supine position architectures were properly padded. IV antibiotics arrived by anesthesia team. A spinal anesthetic and abductor canal block had been provided in the holding area. A Pereira catheter was placed in sterile fashion. Right Tetrick was then placed in the right lower extremities and prepped draped in usual sterile fashion. The right leg was elevated and exsanguinated with use of an Esmarch and the turn was placed at 300 mmHg. An anterior posterior the right knee was then performed to longitudinal incision centered over the patella. Sharp dissection scalp through subcutaneous tissue down the extensor mechanism. A medial prepped arthrotomy incision was made. Some subperiosteal dissection was carried out medially. The fat pad was resected from Neath patella tendon. Lateral patellofemoral ligament was released. Patella subluxated laterally knee was flexed with the osteophytes taken on distal femur. The ACL and PCL were then released from distal femur the tibia subluxated anteriorly. The external tibial alignment jig was then placed in the interface the tibia just a 12 mm medially. Proximal tibial cut was made remove about 3 to 4 mm of bone from the medial side. The tibia sized to a size 71. Attention drawn the femur. The distal femur examined the sharp drill. Intramedullary canal was suction. Right 5 degree valgus cutting guide was placed. This femoral cutting block was pinned in place. This femoral cut was made to take an additional 3 mm of bone off distal femur. I did bring the extension and did some pie crusting the IT band in order to equalize the extension gap. Great care was taken to protect the peroneal nerve at all times. The femur was then sized to a size 70. The AP cutting block was pinned parallel to the epicondylar axis which was 5 degrees of external rotation. Anterior cut, anterior chamfer, posterior cut, posterior chamfer cuts were made. The box cutting guide was placed in just slight lateral box cut was made. The knee was flexed with the remnants of the medial lateral menisci were excised. The osteophytes taken off the posterior aspect of femur. A trial femoral component was placed. The tibial tray was pinned in maximum external rotation and the drill and stem punch used to create defect in proximal tibia for the tibial tray. The knee was then trialed and the 10 mm insert fit most properly. It was a little bit lax with varus valgus stressing but felt the 12 mm insert was a little too tight. Attention drawn the patella. The patella is cleaned of all soft tissues. Patella thickness measured 22 mm in thickness was cut down to 14. Was sized to a size 31 patella. The lug holes were drilled for 31 patella. Lateral osteophytes removed. Patella button was placed. Knee was taken through range of motion patella tracked nicely with no thumbs test. Attention drawn to placing permanent components. Nupathe all trial components were removed. Bone plug was placed in the distal femur limit blood loss. Double batch Palacos G cement was mixed. Biomet Vanguard size 70 right PostMI femoral component, size 71 tibial tray, a 10 mm post stabilized polyethylene insert, and a 31 x 8 all poly patella then cemented in place. Knee was brought to full extension till cement hardened. Final cement check was then performed. Pericapsular tissues were injected with total 100 cc of combination of 20 cc of Exparel, 30 cc normal saline, 50 cc of quarter percent Marcaine with epinephrine. Patient did receive 1 g tranexamic acid. Tourniquet was then let down for final tourniquet time 55 minutes. Hemostasis reduced electrocautery. Extensor mechanism closed with combination 1 PDS suture #1 Vicryl suture in [id number] fashion. Extensor mechanism checked by me intact the subcutaneous tissue then closed with 2 Dexon suture in buried interrupted fashion skin was closed skin mitch. Leg was then cleaned and dried and sterile dressing was Xeroform, 4 fours, sterile cast padding, Anson bandage applied. Patient then transferred to the recovery in stable condition. Patient tolerated the procedure well and there were no complications. Geovanny Wright, my physician temporary administrative assistant, was present for the entire procedure. His assistance was essential and required for appropriate patient positioning, prepping and draping, surgical exposure, performing the technical details of the operation, placement the implants, closure of the wound, and placement of the sterile bandage. I attest to the content of the Intraoperative Record and any orders documented therein. Any exceptions are noted below.
--- NOTE | 2023-05-17 13:27 | XRay Report ---
XR knee RT 1 or 2V routine HISTORY: 62 years-old Female Surgical Post Op right knee arthroplasty COMPARISON: 02/18/2023 TECHNIQUE: 2 views of the right knee FINDINGS: Total hip arthroplasty with patellar resurfacing. Anterior midline skin mitch with expected postope rative soft tissue swelling and deep tissue air. No acute fracture or unexpected opaque foreign body. IMPRESSION: Right knee total joint arthroplasty with expected postoperative changes. ACT 112: Negative or not required by law. The above report was generated using voice recognition software. It may contain grammatical, syntax o r spelling errors. Electronically signed by: Peter Glalegos M.D. 05/17/2023 1:26 PM
--- NOTE | 2023-05-17 14:24 | Anesthesiology Progress Note ---
Date of Service May 17, 2023 Anesthesia Post Procedure Vital Signs Vital Signs: Temp Pulse Pulse Resp BP Pulse Ox O2 Del Method 05/17/23 13:55 74 14 144/65 H 96 Oxymask 05/17/23 13:45 54 L 13 147/62 H 95 Nasal Cannula 05/17/23 14:05 99.3 F 58 L 15 140/50 L 95 Oxymask 05/17/23 13:35 74 14 149/68 H 962 H Oxymask 05/17/23 13:25 74 13 148/67 H 97 Oxymask 05/17/23 13:15 79 19 137/69 97 Oxymask 05/17/23 13:05 97.9 F 76 12 138/66 96 Oxymask 05/17/23 09:31 98.4 F 59 L 20 156/79 H 98 Room Air O2 Flow Rate 05/17/23 13:55 2 05/17/23 13:45 2 05/17/23 14:05 2 05/17/23 13:35 2 05/17/23 13:25 3 05/17/23 13:15 3 05/17/23 13:05 5 05/17/23 09:31 Transfer of Care Handoff Completed per policy Notes Mental Status: alert / awake / arousable and participated in evaluation Patient Amnestic to Procedure: Yes Nausea / Vomiting: adequately controlled Pain: adequately controlled Airway Patency, RR, SpO2: stable & adequate BP & HR: stable & adequate Hydration State: stable & adequate Neuraxial Anesthesia: was administered and sensory block is resolving Anesthetic Complications: no major complications apparent and Pt Satisfied with anesthetic care
[2023-05-17] MEDS ORDERED: ONDANSETRON INJ 2 MG/ML 2 ML VIAL IV PRN (15:31)
[2023-05-17] MEDS ORDERED: MAGNESIUM HYDROXIDE SUSP 30 ML UDC PO PRN (15:31)
[2023-05-17] MEDS ORDERED: METOCLOPRAMIDE HCL INJ 5 MG/ML 2 ML VIAL IV PRN (15:31)
[2023-05-17] MEDS ORDERED: bisacodyL 10 MG SUPP PR PRN (15:31)
[2023-05-17] MEDS ORDERED: HYDROmorphone INJ 0.5 MG/0.5 ML SYR IV PRN (15:31)
[2023-05-17] MEDS ORDERED: NALOXONE HCL 0.4 MG/1 ML VIAL/CARP IV PRN (15:31)
[2023-05-17] MEDS ORDERED: diphenhydrAMINE Capsule 25 MG CAP PO PRN (15:31)
[2023-05-17] MEDS ORDERED: ALUMINUM/MAGNESIUM SUSP 30 ML UDC PO PRN (15:31)
[2023-05-17] MEDS: GABAPENTIN 400 MG CAP PO SCH ×2 (16:24→21:59)
[2023-05-17] MEDS: ASCORBIC ACID 500 MG TAB PO SCH (16:25)
[2023-05-17] MEDS: SODIUM CHLORIDE 0.9% 1,000 ML IV SCH (16:26)
[2023-05-17] MEDS: Scopolamine CHECK PATCH PLACEMENT SCH (16:26)
[2023-05-17] MEDS: KETOROLAC 30 MG/ML VIAL IV SCH ×2 (16:26→21:59)
[2023-05-17] MEDS: ACETAMINOPHEN 500 MG TAB PO SCH ×2 (16:26→21:59)
[2023-05-17] MEDS: oxyCODONE HCL IR 5 MG TAB (IMMEDIATE RELEASE) PO PRN (18:24)
[2023-05-17] MEDS: ceFAZolin 2000MG 2,000 MG/15 ML SYR IV SCH (18:32)
[2023-05-17] MEDS ORDERED: TRANEXAMIC ACID / 0.7% NACL 1,000 MG/100 ML BAG IV SCH (19:15)
[2023-05-17] MEDS ORDERED: lisinopril 5 MG TAB PO SCH (21:00)
[2023-05-17] MEDS ORDERED: SENNA 8.6 MG TAB PO SCH ×2 (21:00)
[2023-05-17] MEDS: CITALOPRAM 20 MG TAB PO SCH (21:58)
[2023-05-17] MEDS: DOCUSATE SODIUM 100 MG CAP PO SCH (21:59)
[2023-05-17] MEDS: ASPIRIN 81 MG ECTAB PO SCH (21:59)
[2023-05-18] MEDS: Scopolamine CHECK PATCH PLACEMENT SCH ×2 (00:07→07:47)
[2023-05-18] MEDS: ceFAZolin 2000MG 2,000 MG/15 ML SYR IV SCH (02:16)
[2023-05-18] MEDS: oxyCODONE HCL IR 5 MG TAB (IMMEDIATE RELEASE) PO PRN ×2 (02:16→08:21)
[2023-05-18] MEDS: SODIUM CHLORIDE 0.9% 1,000 ML IV SCH (02:34)
[2023-05-18] MEDS: ACETAMINOPHEN 500 MG TAB PO SCH (05:06)
[2023-05-18] MEDS: KETOROLAC 30 MG/ML VIAL IV SCH ×2 (05:06→09:58)
[2023-05-18 06:17] LABS: Hematocrit (blood only) 27.9 % (37.0-47.0); Hemoglobin 9.5 g/dl (12.0-16.0); Mean Corpuscular Hemoglobin 29.9 pg (25.0-34.0); Mean Corpuscular Hgb Conc 34.1 g/dL (32.0-36.0); Mean Corpuscular Volume 87.7 fL (80.0-100.0); Mean Platelet Volume 9.9 fL (9.4-12.4); Platelet Count 251 K/uL (130-400); RDW Coefficient of Variation 13.2 % (11.5-14.5); RDW Standard Deviation 42.7 fL (36.4-46.3); Red Blood Count 3.18 M/uL (4.20-5.40); White Blood Count 10.95 K/ul (4.8-10.8)
[2023-05-18 06:38] LABS: Calcium 8.1 mg/dl (8.6-10.3); Creatinine Clr Calc Pharmacy 90.5 ml/min; Est GFR (Non-African American) 85.4 ml/min; Potassium 3.9 mmol/L (3.5-5.1)
--- NOTE | 2023-05-18 07:18 | Surgery Progress Note ---
Date of Service May 18, 2023 Assessment & Plan (1) Status post right knee replacement: Plan: 62-year-old female postop day 1 from right knee replacement doing pretty well. Pain is controlled. She is neurologically intact. Plan: 1. DVT prophylaxis including thigh-high teds, SCDs, aspirin twice a day. 2. PT OT. Weight-bear as tolerated right total knee protocol. 3. Pain control doing okay with current pain regimen. 4. Disposition plan to discharge to home with some home health if she does okay in therapy today. Admission and Anticipated Discharge Date Admission Date: May 17, 2023 Subjective 62-year-old female postop day 1 from a right knee replacement. She is doing pretty well. Pains been controlled. No chest pain or shortness of breath. Not feeling dizzy or lightheaded Physical Exam Physical Exam: Physical examination was a pleasant middle-age female. Sitting up in her bedside chair this morning looks pretty comfortable. Examination of the right leg reveals the dressing clean dry and intact. Leg is well aligned. She can dorsiflex and plantarflex her foot appropriately. She has difficulty doing a straight leg raise. She is neurologically intact Respiratory: normal respiratory effort, lungs clear to auscultation Cardiovascular: RRR, no murmur, no edema Gastrointestinal (Abdomen): normal bowel sounds, soft, nontender, no hepatosplenomegaly Results & Data Vital Signs (Past 12 Hours) Vital Signs Temp Pulse Resp BP Pulse Ox O2 Del Method 05/18/23 03:41 36.6 C 61 18 148/82 H 97 Room Air 05/17/23 20:00 Room Air, CPAP 05/17/23 23:40 36.5 C 62 18 120/85 96 Room Air Laboratory Results Hemoglobin is 9.5. Hematocrit is 27.9. Electrolytes are stable. PG Care Time/CCT Total # of Minutes Spent Total Time Spent with Patient: Total time spent is greater than 50% in coordination of care (as documented) at patient's floor/unit and/or counseling patient: Coding Level of Care Code 56048 Post Operative Follow-Up Diagnoses Status post right knee replacement Z96.651
[2023-05-18] MEDS: ASPIRIN 81 MG ECTAB PO SCH (07:46)
[2023-05-18] MEDS: ASCORBIC ACID 500 MG TAB PO SCH (07:47)
[2023-05-18] MEDS: GABAPENTIN 400 MG CAP PO SCH (07:47)
[2023-05-18] MEDS: DOCUSATE SODIUM 100 MG CAP PO SCH (07:47)
[2023-05-18] MEDS: CITALOPRAM 20 MG TAB PO SCH (07:47)
[2023-05-18] MEDS ORDERED: dexAMETHasone 10 MG in SYRINGE 0 ML IV SCH (08:00)
[2023-05-18] MEDS ORDERED: PANTOprazole 40 MG TAB PO SCH (09:00)
[2023-05-18] MEDS ORDERED: MULTIVITAMIN TAB PO SCH (09:00)
[2023-05-18] MEDS ORDERED: FLUTICASONE PROPIONATE NA SPR 16 GM BTL NAE SCH (09:00)
[2023-05-20] MEDS ORDERED: ERGOCALCIFEROL 50,000 UNITS 1250 MCG CAP PO SCH (09:00)
--- NOTE | 2023-05-26 07:54 | Discharge Summary ---
Date of Service May 26, 2023 Discharge Data Procedures Performed Operation Date: 05/17/23 10:40 Actual Procedures p Right Total Knee Arthroplasty - Jono Murdock MD Hospital Course (1) Status post right knee replacement: This is a 62 year old patient admitted on 05/17/23 and underwent total knee arthroplasty. She tolerated the procedure well and there were no complications. Transferred to the PACU post op and later to the orthopedic floor for further care. She was given ancef for antibiotic prophylaxis. She was also given CESAR stockings, SCDs, and aspirin for DVT prophylaxis. Hemoglobin, hematocrit, and vital signs were monitored during her hospital stay and remained stable. Did not require any blood transfusions. There were no complications during her hospital stay. By post op day #1 the patient was tolerating a regular diet, pain was reasonably controlled with oral pain medicine, and she was participating in physical therapy. On post op day #1 the patient was discharged home and set up with home health care. She was given printed discharge instructions including prescriptions for extra strength tylenol, aspirin, zofran, ketorolac, senokot, and oxycodone. Continue physical therapy, weight bearing as tolerated. Continue CESAR stockings. Follow up approximately 2 weeks post op or sooner if there are problems or concerns. Coding Level of Care Code None Diagnoses Status post right knee replacement Z96.651
== END 2023-05-18 13:28 | disposition home health service (06) ==
LOC: ASU 09:00 → 3E 09:00